=== PATIENT | male | born 1960 | race Caucasian/White ===

== ENCOUNTER 2020-10-23 01:47 | Inpatient (IN) ==
[2020-10-23] MEDS ORDERED: PIPERACILLIN/TAZOBACTAM 3,375 MG in SODIUM CHLORIDE 0.9% 100 ML IV STA (02:25)
[2020-10-23] MEDS ORDERED: SODIUM CHLORIDE 0.9% 1,000 ML IV STA (02:25)
[2020-10-23] MEDS ORDERED: ONDANSETRON 4 MG/2 ML VIAL IV STA (02:25)
[2020-10-23] MEDS ORDERED: DEXAMETHASONE 4 MG/1 ML VIAL IV STA (02:25)
[2020-10-23 02:53] LABS: Basophils % 0.4 % (0.0-0.8); Eosinophils % 0.2 % (0.00-10.9); Hematocrit 41.4 VOL% (42.0-52.0); Hemoglobin 13.5 GM/DL (14.0-18.0); Immature Granulocytes % 0.4 %; Immature Granulocytes Absolute 0.04 #; Lymphocytes # 0.7 10*3/uL (1.4-4.0); Lymphocytes % 6.5 % (21.2-54.2); Mean Corpuscular HGB Conc 32.6 GM/DL (32-36); Mean Corpuscular Volume 89.8 FL (87-102); Mean Platelet Volume 9.1 FL (9.6-12.0); Monocytes % 3.2 % (1.7-12.7); Neutrophils % 89.3 % (38.7-73.9); Platelet Count 358 T/CUMM (130-400); Red Blood Count 4.61 MC/CUMM (3.8-5.5); Red Cell Distribution Width 12.7 % (9.3-17.3); White Blood Count 11.1 T/CUMM (4-12)
[2020-10-23 03:09] LABS: INR 1.1; PT Patient Result 11.8 SECS (10.5-12.0)
[2020-10-23 03:17] LABS: Albumin 2.9 G/DL (3.4-5.0); Bilirubin,Total 0.5 MG/DL (0.20-1.00); Calcium 8.3 MG/DL (8.5-10.1); Osmolality,Calculated 269.2 MOS/KG (273-304); Potassium 4.2 MMOL/L (3.5-5.1); Total Protein 6.6 G/DL (6.4-8.2)
[2020-10-23] MEDS ORDERED: ACETAMINOPHEN 500 MG TABLET PO STA (04:47)
[2020-10-23 05:12] LABS: Bilirubin,Urine Negative (Negative); Blood, Urine Negative (Negative); Glucose,Urine (UA) Negative (Negative); Ketones,Urine Negative (Negative); Mucus,Urine Occasional /LPF (Occasional); Nitrite,Urine Negative (Negative); Protein,Urine Negative; RBC,Urine 1 /HPF (0-4); Squamous Epithelial Cell,Urine Occasional /HPF (0-10); Urine Appearance CLEAR (Clear); Urine Color Yellow (Yellow); Urine Specific Gravity 1.036 (1.001-1.035); Urine Urobilinogen < 2.0 EU/DL (0.2-1.0)
[2020-10-23] MEDS ORDERED: GLUCAGON 1 MG VIAL IM PRN (05:44)
[2020-10-23] MEDS ORDERED: DEXTROSE 50% 25 GM/50 ML VIAL IV PRN (05:44)
[2020-10-23] MEDS ORDERED: NICOTINE 21 MG/24 HR PATCH TRANSDERM PRN (05:45)
[2020-10-23] MEDS ORDERED: DOCUSATE SODIUM 100 MG CAPSULE PO PRN (05:45)
[2020-10-23] MEDS ORDERED: ONDANSETRON 4 MG/2 ML VIAL IV PRN (05:45)
[2020-10-23 06:17] LABS: Barbiturates Screen,Urine Negative (Negative); Benzodiazepines Screen,Urine Negative (Negative); Cannabinoid Screen,Urine Negative (Negative); Opiate Screen,Urine Negative (Negative); Phencyclidine Screen,Urine Negative (Negative)
[2020-10-23] MEDS: ENOXAPARIN 40 MG/0.4 ML SYRINGE SUBCUT SCH (08:08)
[2020-10-23] MEDS: SODIUM CHLORIDE 0.9% 1,000 ML IV SCH ×2 (08:09→18:06)
[2020-10-23] MEDS ORDERED: CETIRIZINE 10 MG TABLET PO PRN (08:09)
[2020-10-23] MEDS ORDERED: guaiFENesin/DM ER 600-30 MG TABLET PO PRN (08:12)
[2020-10-23] MEDS ORDERED: ZINC SULFATE 220 MG CAPSULE PO SCH (09:00)
[2020-10-23] MEDS: PIPERACILLIN/TAZOBACTAM 3,375 MG in SODIUM CHLORIDE 0.9% 100 ML IV SCH ×2 (09:35→18:02)
[2020-10-23] MEDS: ALBUTEROL/IPRATROPIUM 3 ML NEB RESP TX SCH ×3 (11:18→20:30)
[2020-10-23] MEDS: CHOLECALCIFEROL 400 UNIT TABLET PO SCH (12:38)
[2020-10-23] MEDS: ASCORBIC ACID 500 MG TABLET PO SCH ×2 (12:38→21:15)
[2020-10-23] MEDS: PANTOPRAZOLE 40 MG TABLET PO SCH (12:39)
[2020-10-23] MEDS: DEXAMETHASONE 10 MG/1 ML VIAL IV SCH (12:39)
[2020-10-23] MEDS: CETIRIZINE 10 MG TABLET PO SCH (12:39)
[2020-10-23] MEDS: ZINC SULFATE 220 MG CAPSULE PO SCH (18:03)
[2020-10-24] MEDS: PIPERACILLIN/TAZOBACTAM 3,375 MG in SODIUM CHLORIDE 0.9% 100 ML IV SCH ×3 (00:26→16:49)
[2020-10-24] MEDS: ALBUTEROL/IPRATROPIUM 3 ML NEB RESP TX SCH ×7 (00:40→23:20)
[2020-10-24 05:25] LABS: Basophils % 0.1 % (0.0-0.8); Hematocrit 38.1 VOL% (42.0-52.0); Hemoglobin 12.9 GM/DL (14.0-18.0); Immature Granulocytes % 0.6 %; Immature Granulocytes Absolute 0.11 #; Lymphocytes # 1.3 10*3/uL (1.4-4.0); Lymphocytes % 7.4 % (21.2-54.2); Mean Corpuscular HGB Conc 33.9 GM/DL (32-36); Mean Corpuscular Volume 89.9 FL (87-102); Mean Platelet Volume 9.4 FL (9.6-12.0); Monocytes % 6.9 % (1.7-12.7); Platelet Count 328 T/CUMM (130-400); Red Blood Count 4.24 MC/CUMM (3.8-5.5); Red Cell Distribution Width 13.1 % (9.3-17.3); White Blood Count 17.1 T/CUMM (4-12)
[2020-10-24 05:55] LABS: Calcium 8.7 MG/DL (8.5-10.1); Osmolality,Calculated 296.7 MOS/KG (273-304); Potassium 3.6 MMOL/L (3.5-5.1); Risk Ratio 6.78; VLDL Cholesterol 20.4 MG/DL
[2020-10-24] MEDS: ZINC SULFATE 220 MG CAPSULE PO SCH (10:00)
[2020-10-24] MEDS: DEXAMETHASONE 10 MG/1 ML VIAL IV SCH (10:00)
[2020-10-24] MEDS: ENOXAPARIN 40 MG/0.4 ML SYRINGE SUBCUT SCH (10:01)
[2020-10-24] MEDS: ASCORBIC ACID 500 MG TABLET PO SCH ×2 (10:01→20:09)
[2020-10-24] MEDS: CHOLECALCIFEROL 400 UNIT TABLET PO SCH (10:01)
[2020-10-24] MEDS: PANTOPRAZOLE 40 MG TABLET PO SCH (10:01)
[2020-10-24] MEDS: CETIRIZINE 10 MG TABLET PO SCH (10:01)
[2020-10-24] MEDS: SODIUM CHLORIDE 0.9% 1,000 ML IV SCH ×2 (16:48→21:53)
[2020-10-25] MEDS: PIPERACILLIN/TAZOBACTAM 3,375 MG in SODIUM CHLORIDE 0.9% 100 ML IV SCH ×2 (01:10→09:29)
[2020-10-25] MEDS: ALBUTEROL/IPRATROPIUM 3 ML NEB RESP TX SCH ×5 (03:25→22:08)
[2020-10-25] MEDS: SODIUM CHLORIDE 0.9% 1,000 ML IV SCH ×2 (06:08→08:00)
[2020-10-25 06:23] LABS: Basophils % 0.1 % (0.0-0.8); Hematocrit 37.3 VOL% (42.0-52.0); Hemoglobin 12.2 GM/DL (14.0-18.0); Immature Granulocytes Absolute 0.17 #; Lymphocytes # 1.8 10*3/uL (1.4-4.0); Lymphocytes % 11.1 % (21.2-54.2); Mean Corpuscular HGB Conc 32.7 GM/DL (32-36); Mean Corpuscular Volume 91.6 FL (87-102); Mean Platelet Volume 9.5 FL (9.6-12.0); Monocytes % 6.6 % (1.7-12.7); Neutrophils % 81.2 % (38.7-73.9); Platelet Count 364 T/CUMM (130-400); Red Blood Count 4.07 MC/CUMM (3.8-5.5); Red Cell Distribution Width 13.7 % (9.3-17.3); White Blood Count 16.5 T/CUMM (4-12)
[2020-10-25 06:55] LABS: Calcium 8.2 MG/DL (8.5-10.1); Osmolality,Calculated 298.6 MOS/KG (273-304); Potassium 3.6 MMOL/L (3.5-5.1); Risk Ratio 6.73; VLDL Cholesterol 40.8 MG/DL
[2020-10-25] MEDS: ACETAMINOPHEN 325 MG TABLET PO PRN ×2 (07:00→16:03)
[2020-10-25] MEDS: PANTOPRAZOLE 40 MG TABLET PO SCH (09:30)
[2020-10-25] MEDS: CHOLECALCIFEROL 400 UNIT TABLET PO SCH (09:30)
[2020-10-25] MEDS: ASCORBIC ACID 500 MG TABLET PO SCH ×2 (09:30→20:49)
[2020-10-25] MEDS: predniSONE 10 MG TABLET PO SCH (09:30)
[2020-10-25] MEDS: CETIRIZINE 10 MG TABLET PO SCH (09:30)
[2020-10-25] MEDS: ENOXAPARIN 40 MG/0.4 ML SYRINGE SUBCUT SCH (09:31)
[2020-10-25] MEDS: ZINC SULFATE 220 MG CAPSULE PO SCH (09:31)
[2020-10-25] MEDS: VANCOMYCIN INJ 1,000 MG in SODIUM CHLORIDE 0.9% 250 ML IV SCH (16:03)
[2020-10-26] MEDS: ALBUTEROL/IPRATROPIUM 3 ML NEB RESP TX SCH ×7 (00:20→20:11)
[2020-10-26 05:28] LABS: Basophils % 0.3 % (0.0-0.8); Eosinophils % 0.2 % (0.00-10.9); Hematocrit 38.8 VOL% (42.0-52.0); Hemoglobin 12.4 GM/DL (14.0-18.0); Immature Granulocytes Absolute 0.11 #; Lymphocytes # 3.2 10*3/uL (1.4-4.0); Mean Corpuscular Volume 92.2 FL (87-102); Mean Platelet Volume 9.7 FL (9.6-12.0); Monocytes % 8.7 % (1.7-12.7); Neutrophils % 60.8 % (38.7-73.9); Platelet Count 397 T/CUMM (130-400); Red Blood Count 4.21 MC/CUMM (3.8-5.5); Red Cell Distribution Width 13.9 % (9.3-17.3)
[2020-10-26 05:44] LABS: Calcium 8.3 MG/DL (8.5-10.1); Osmolality,Calculated 287.8 MOS/KG (273-304); Potassium 3.7 MMOL/L (3.5-5.1)
[2020-10-26] MEDS: SODIUM CHLORIDE 0.9% 1,000 ML IV SCH ×3 (05:49→18:22)
[2020-10-26] MEDS: predniSONE 10 MG TABLET PO SCH (09:31)
[2020-10-26] MEDS: VANCOMYCIN INJ 1,000 MG in SODIUM CHLORIDE 0.9% 250 ML IV SCH (09:32)
[2020-10-26] MEDS: ASCORBIC ACID 500 MG TABLET PO SCH ×2 (09:32→21:08)
[2020-10-26] MEDS: CHOLECALCIFEROL 400 UNIT TABLET PO SCH (09:32)
[2020-10-26] MEDS: PANTOPRAZOLE 40 MG TABLET PO SCH (09:32)
[2020-10-26] MEDS: CETIRIZINE 10 MG TABLET PO SCH (09:32)
[2020-10-26] MEDS: ENOXAPARIN 40 MG/0.4 ML SYRINGE SUBCUT SCH (09:34)
[2020-10-26] MEDS: ZINC SULFATE 220 MG CAPSULE PO SCH (09:36)
[2020-10-27] MEDS: ALBUTEROL/IPRATROPIUM 3 ML NEB RESP TX SCH ×6 (00:26→19:24)
[2020-10-27] MEDS: VANCOMYCIN INJ 1,000 MG in SODIUM CHLORIDE 0.9% 250 ML IV SCH ×2 (03:15→20:49)
[2020-10-27] MEDS: SODIUM CHLORIDE 0.9% 1,000 ML IV SCH ×2 (04:00→16:43)
[2020-10-27 05:19] LABS: Basophils # 0.1 10*3/uL (0.0-0.2); Basophils % 0.4 % (0.0-0.8); Eosinophils # 0.3 10*3/uL (0.0-0.87); Eosinophils % 2.7 % (0.00-10.9); Hematocrit 41.2 VOL% (42.0-52.0); Hemoglobin 13.6 GM/DL (14.0-18.0); Immature Granulocytes % 1.7 %; Lymphocytes # 4.1 10*3/uL (1.4-4.0); Lymphocytes % 34.6 % (21.2-54.2); Mean Corpuscular Volume 90.2 FL (87-102); Mean Platelet Volume 9.7 FL (9.6-12.0); Monocytes % 9.9 % (1.7-12.7); NRBC # 0.02 10*3/uL; Neutrophils % 50.7 % (38.7-73.9); Platelet Count 430 T/CUMM (130-400); Red Blood Count 4.57 MC/CUMM (3.8-5.5); Red Cell Distribution Width 13.9 % (9.3-17.3); White Blood Count 11.8 T/CUMM (4-12)
[2020-10-27 05:40] LABS: Calcium 8.4 MG/DL (8.5-10.1); Osmolality,Calculated 283.1 MOS/KG (273-304); Potassium 3.7 MMOL/L (3.5-5.1)
[2020-10-27] MEDS: ENOXAPARIN 40 MG/0.4 ML SYRINGE SUBCUT SCH (09:02)
[2020-10-27] MEDS: CETIRIZINE 10 MG TABLET PO SCH (09:02)
[2020-10-27] MEDS: CHOLECALCIFEROL 400 UNIT TABLET PO SCH (09:02)
[2020-10-27] MEDS: ZINC SULFATE 220 MG CAPSULE PO SCH (09:03)
[2020-10-27] MEDS: ASCORBIC ACID 500 MG TABLET PO SCH ×2 (09:03→21:05)
[2020-10-27] MEDS: predniSONE 10 MG TABLET PO SCH (09:03)
[2020-10-27] MEDS: PANTOPRAZOLE 40 MG TABLET PO SCH (09:03)
[2020-10-27] MEDS ORDERED: SODIUM CHLORIDE 0.45% 1,000 ML IV SCH (09:30)
[2020-10-27] MEDS: amLODIPine 10 MG TABLET PO SCH (10:44)
[2020-10-27] MEDS: ACETAMINOPHEN 325 MG TABLET PO PRN (13:01)
[2020-10-28] MEDS: ALBUTEROL/IPRATROPIUM 3 ML NEB RESP TX SCH ×4 (01:16→16:00)
[2020-10-28 06:17] LABS: Basophils # 0.1 10*3/uL (0.0-0.2); Basophils % 0.5 % (0.0-0.8); Eosinophils # 0.4 10*3/uL (0.0-0.87); Eosinophils % 2.8 % (0.00-10.9); Hematocrit 45.4 VOL% (42.0-52.0); Hemoglobin 14.6 GM/DL (14.0-18.0); Immature Granulocytes % 3.6 %; Immature Granulocytes Absolute 0.47 #; Lymphocytes # 3.9 10*3/uL (1.4-4.0); Lymphocytes % 29.9 % (21.2-54.2); Mean Corpuscular HGB Conc 32.2 GM/DL (32-36); Mean Corpuscular Volume 91.3 FL (87-102); Mean Platelet Volume 9.3 FL (9.6-12.0); Monocytes % 9.3 % (1.7-12.7); Neutrophils % 53.9 % (38.7-73.9); Platelet Count 480 T/CUMM (130-400); Red Blood Count 4.97 MC/CUMM (3.8-5.5); Red Cell Distribution Width 13.7 % (9.3-17.3); White Blood Count 13.1 T/CUMM (4-12)
[2020-10-28 06:46] LABS: Osmolality,Calculated 280.5 MOS/KG (273-304); Potassium 3.9 MMOL/L (3.5-5.1)
[2020-10-28] MEDS ORDERED: VANCOMYCIN INJ 1,000 MG in SODIUM CHLORIDE 0.9% 250 ML IV SCH (08:00)
[2020-10-28] MEDS ORDERED: LIDOCAINE 2% 5 ML VIAL ONE (08:18)
[2020-10-28] MEDS ORDERED: propofoL 200 MG/20 ML VIAL IV ONE (08:18)
[2020-10-28] MEDS: ENOXAPARIN 40 MG/0.4 ML SYRINGE SUBCUT SCH (10:26)
[2020-10-28] MEDS: CHOLECALCIFEROL 400 UNIT TABLET PO SCH (10:27)
[2020-10-28] MEDS: amLODIPine 10 MG TABLET PO SCH (10:27)
[2020-10-28] MEDS: predniSONE 10 MG TABLET PO SCH (10:27)
[2020-10-28] MEDS: ASCORBIC ACID 500 MG TABLET PO SCH (10:27)
[2020-10-28] MEDS: PANTOPRAZOLE 40 MG TABLET PO SCH (10:27)
[2020-10-28] MEDS: ZINC SULFATE 220 MG CAPSULE PO SCH (10:28)
[2020-10-28] MEDS: CETIRIZINE 10 MG TABLET PO SCH (10:33)
[2020-10-28 11:54] VITALS: BP 127/80
== END 2020-10-28 16:05 | disposition home or self-care (01) | DRG 179 ==
LOC: EDUNIT# → EDBD → N.ED 01:47 → N.EDINP 05:44 → SUATTDRO 05:44 → N.EDINP 10:05 → N.5E 10:15
PROVIDERS: ADMIT Internal Medicine; ATTEND Internal Medicine Geriatric Medicine